=== PATIENT | male | born 1950 | race Caucasian/White ===

== ENCOUNTER 2016-09-14 20:21 | Observation (INO) | payer MEDICARE ==
[2016-09-14] MEDS ORDERED: ONDANSETRON 4 MG/2 ML VIAL IVP STA (21:20)
[2016-09-14 21:42] LABS: Basophils % (A) 1 %; CHCM 34.9; Eosinophils # (A) 0.4 k/uL (0-0.7); Eosinophils % (A) 7 %; HCT 39.3 % (39.0-53.0); Luc # (Auto) 0.13; Luc % (Auto) 2; Lymphocytes # (A) 0.9 k/uL (1.0-4.8); Lymphocytes % (A) 15 %; MCH 31.9 pg (25.0-35.0); MCHC 35.7 g/dL (31.0-37.0); MCV 89.4 fL (80.0-100.0); Mean Platelet Volume 7.3; Monocytes # (A) 0.4 k/uL (0-1.0); Monocytes % (A) 6 %; Neutrophils # (A) 4.2 k/uL (1.3-7.7); Neutrophils % (A) 70 %; RBC 4.39 m/uL (4.30-5.90); RDW 12.1 % (11.5-15.5); WBC 6.1 k/uL (3.8-10.6); WBC (Perox) 6.53
--- NOTE | 2016-09-14 21:50 | ED ---
Weakness HPI - General Chief complaint: Weakness Stated complaint: Syncope Time Seen by Provider: 09/14/16 21:17 Source: patient, EMS Mode of arrival: EMS Limitations: no limitations - History of Present Illness Initial comments: This patient is a 66-year-old man who comes to be evaluated for what appears to be near syncopal episode. The patient relates that he had gone to dinner with friends, feeling like his normal self. While he was at the restaurant at approximately 6:30, he noticed that he was feeling lightheaded. Another friend arrived and he found it very difficult to stand to greet this person. He subsequently felt more lightheaded and nauseated. He states that he felt like he was going to become unconscious and he also had an episode of vomiting. The patient is accompanied by a friend who is a physician stating that the patient' s pulse was very "thready" during this episode. The patient denies having any chest pain, dyspnea, palpitations, or diaphoresis. Patient states that since arriving here he is now feeling back to his usual self. MD Complaint: generalized weakness -: hour(s) Location: generalized Severity: severe Consistency: now resolved Improves with: none Worsens with: exertion Associated Symptoms: syncope (Near syncope) - Related Data Home Medications Medication Instructions Recorded Confirmed amLODIPine BESYLATE/BENAZEPRIL 1 cap PO DAILY 09/14/16 09/14/16 [amLODIPine BESYLATE/BENAZEPRIL 5-20 mg] Allergies Allergy/AdvReac Type Severity Reaction Status Date / Time No Known Allergies Allergy Verified 09/14/16 20:56 Review of Systems ROS Statement: Those systems with pertinent positive or pertinent negative responses have been documented in the HPI. ROS Other: All systems not noted in ROS Statement are negative. Constitutional: Reports: weakness. Denies: fever, chills Eyes: Denies: vision change Respiratory: Denies: cough, dyspnea, wheezes Cardiovascular: Reports: syncope (Near syncope). Denies: chest pain, palpitations, orthopnea, edema Gastrointestinal: Reports: nausea, vomiting. Denies: abdominal pain, diarrhea, melena, hematochezia Genitourinary: Denies: dysuria, hematuria Musculoskeletal: Denies: back pain Skin: Denies: rash Neurological: Denies: headache, weakness, numbness Past Medical History Past Medical History: Hypertension, Myocardial Infarction (AL) History of Any Multi-Drug Resistant Organisms: None Reported Past Surgical History: Heart Catheterization With Stent Past Psychological History: No Psychological Hx Reported Smoking Status: Never smoker Past Alcohol Use History: Daily Past Drug Use History: None Reported General Exam Limitations: no limitations General appearance: alert, in no apparent distress Head exam: Present: atraumatic, normocephalic Eye exam: Present: normal appearance. Absent: scleral icterus, conjunctival injection ENT exam: Present: normal oropharynx Neck exam: Present: normal inspection, full ROM Respiratory exam: Present: normal lung sounds bilaterally. Absent: respiratory distress, wheezes, rales, rhonchi, stridor Cardiovascular Exam: Present: regular rate, normal rhythm, normal heart sounds. Absent: systolic murmur, diastolic murmur, rubs, gallop GI/Abdominal exam: Present: soft. Absent: distended, tenderness, guarding, rebound, mass, pulsatile mass, hernia Extremities exam: Present: normal inspection, normal capillary refill. Absent: pedal edema, calf tenderness Back exam: Present: normal inspection. Absent: CVA tenderness (R), CVA tenderness (L) Neurological exam: Present: alert, oriented X3. Absent: motor sensory deficit Skin exam: Present: warm, dry, intact, normal color. Absent: rash Course Vital Signs 09/14/16 09/14/16 09/14/16 20:24 21:38 23:11 Temperature 96.7 F L 97.1 F L Pulse Rate 56 L 57 L 50 L Respiratory 18 18 18 Rate Blood Pressure 157/65 153/74 178/78 O2 Sat by Pulse 93 L 96 95 Oximetry EKG Findings - EKG Results: EKG: interpreted by CM, sinus rhythm, normal axis, normal QRS, normal ST/T, no acute changes EKG shows: bradycardia (Rate approximately 52 bpm) Medical Decision Making - Lab Data Result diagrams: 09/14/16 20:37 09/14/16 20:37 Lab Results 09/14/16 09/14/16 09/14/16 Range/Units 20:37 20:37 20:37 WBC 6.1 (3.8-10.6) k/uL RBC 4.39 (4.30-5.90) m/uL Hgb 14.0 (13.0-17.5) gm/dL Hct 39.3 (39.0-53.0) % MCV 89.4 (80.0-100.0) fL MCH 31.9 (25.0-35.0) pg MCHC 35.7 (31.0-37.0) g/dL RDW 12.1 (11.5-15.5) % Plt Count 179 (150-450) k/uL Neutrophils % 70 % Lymphocytes % 15 % Monocytes % 6 % Eosinophils % 7 % Basophils % 1 % Neutrophils # 4.2 (1.3-7.7) k/uL Lymphocytes # 0.9 L (1.0-4.8) k/uL Monocytes # 0.4 (0-1.0) k/uL Eosinophils # 0.4 (0-0.7) k/uL Basophils # 0.0 (0-0.2) k/uL PT (9.0-12.0) sec INR (<1.1) APTT (22.0-30.0) sec D-Dimer (<0.60) mg/L FEU Sodium 144 (137-145) mmol/L Potassium 4.0 (3.5-5.1) mmol/L Chloride 106 (98-107) mmol/L Carbon Dioxide 26 (22-30) mmol/L Anion Gap 12 mmol/L BUN 25 H (9-20) mg/dL Creatinine 1.10 (0.66-1.25) mg/dL Est GFR (MDRD) Af Amer >60 (>60 ml/min/1.73 sqM) Est GFR (MDRD) Non-Af >60 (>60 ml/min/1.73 sqM) Glucose 129 H (74-99) mg/dL Plasma Lactic Acid Alhaji (0.7-2.0) mmol/L Calcium 9.0 (8.4-10.2) mg/dL Magnesium 2.0 (1.6-2.3) mg/dL Total Bilirubin 1.0 (0.2-1.3) mg/dL AST 29 (17-59) U/L ALT 29 (21-72) U/L Alkaline Phosphatase 66 (38-126) U/L Total Creatine Kinase 69 (55-170) U/L CK-MB (CK-2) 0.8 (0.0-2.4) ng/mL CK-MB (CK-2) Rel Index 1.2 Troponin I <0.012 (0.000-0.034) ng/mL NT-Pro-B Natriuret Pep pg/mL Total Protein 6.8 (6.3-8.2) g/dL Albumin 4.1 (3.5-5.0) g/dL 09/14/16 09/14/16 09/14/16 Range/Units 20:37 20:37 21:42 WBC (3.8-10.6) k/uL RBC (4.30-5.90) m/uL Hgb (13.0-17.5) gm/dL Hct (39.0-53.0) % MCV (80.0-100.0) fL MCH (25.0-35.0) pg MCHC (31.0-37.0) g/dL RDW (11.5-15.5) % Plt Count (150-450) k/uL Neutrophils % % Lymphocytes % % Monocytes % % Eosinophils % % Basophils % % Neutrophils # (1.3-7.7) k/uL Lymphocytes # (1.0-4.8) k/uL Monocytes # (0-1.0) k/uL Eosinophils # (0-0.7) k/uL Basophils # (0-0.2) k/uL PT 10.7 (9.0-12.0) sec INR 1.1 (<1.1) APTT 23.1 (22.0-30.0) sec D-Dimer 0.33 (<0.60) mg/L FEU Sodium (137-145) mmol/L Potassium (3.5-5.1) mmol/L Chloride (98-107) mmol/L Carbon Dioxide (22-30) mmol/L Anion Gap mmol/L BUN (9-20) mg/dL Creatinine (0.66-1.25) mg/dL Est GFR (MDRD) Af Amer (>60 ml/min/1.73 sqM) Est GFR (MDRD) Non-Af (>60 ml/min/1.73 sqM) Glucose (74-99) mg/dL Plasma Lactic Acid Alhaji 1.1 (0.7-2.0) mmol/L Calcium (8.4-10.2) mg/dL Magnesium (1.6-2.3) mg/dL Total Bilirubin (0.2-1.3) mg/dL AST (17-59) U/L ALT (21-72) U/L Alkaline Phosphatase (38-126) U/L Total Creatine Kinase (55-170) U/L CK-MB (CK-2) (0.0-2.4) ng/mL CK-MB (CK-2) Rel Index Troponin I (0.000-0.034) ng/mL NT-Pro-B Natriuret Pep 60 pg/mL Total Protein (6.3-8.2) g/dL Albumin (3.5-5.0) g/dL Disposition Clinical Impression: Near syncope Disposition: ADMITTED IP TO THIS HOSP Condition: Good Referrals: Guillermo Aguilar MD [Primary Care Provider] - 1-2 days
--- NOTE | 2016-09-14 21:56 | XR ---
EXAM: XR Chest, 1 View CLINICAL HISTORY: Reason: weakness TECHNIQUE: Frontal view of the chest, 2 images. COMPARISON: No relevant prior studies available. FINDINGS: Lungs: Unremarkable. No consolidation. Pleural space: No pleural effusion. No pneumothorax. Heart: Unremarkable. No cardiomegaly. Mediastinum: Unremarkable. Bones/joints: No acute findings. IMPRESSION: No acute cardiopulmonary process.
[2016-09-14 21:57] LABS: ALT 29 U/L (21-72); AST 29 U/L (17-59); Alkaline Phosphatase 66 U/L (38-126); Anion Gap 12 mmol/L; Blood Urea Nitrogen 25 mg/dL (9-20); Carbon Dioxide 26 mmol/L (22-30); Chloride 106 mmol/L (98-107); Glucose 129 mg/dL (74-99); Non-African American GFR(MDRD) >60 (>60 ml/min/1.73 sqM); Sodium 144 mmol/L (137-145); Total Protein 6.8 g/dL (6.3-8.2)
[2016-09-14 22:07] LABS: Creatine Kinase 69 U/L (55-170)
[2016-09-14 22:09] LABS: INR 1.1 (<1.1); Partial Thromboplastin Time 23.1 sec (22.0-30.0); Prothrombin Time 10.7 sec (9.0-12.0)
[2016-09-14 22:20] LABS: Creatine Kinase MB 0.8 ng/mL (0.0-2.4); Troponin I <0.012 ng/mL (0.000-0.034)
[2016-09-14] MEDS ORDERED: NITROGLYCERIN SL TABS 0.4 MG TAB SUBLINGUAL PRN (23:48)
[2016-09-14] MEDS: SODIUM CHLORIDE 0.9% 1,000 ML IV SCH (23:52)
[2016-09-15 00:39] VITALS: RESP 16
[2016-09-15 01:44] LABS: Creatine Kinase 64 U/L (55-170)
[2016-09-15 01:54] LABS: Creatine Kinase MB 0.8 ng/mL (0.0-2.4); Troponin I <0.012 ng/mL (0.000-0.034)
[2016-09-15 02:53] VITALS: BMI 21.6
[2016-09-15 06:15] LABS: Cholesterol 129 mg/dL (<200); HDL Cholesterol 50 mg/dL (40-60); Triglycerides 46 mg/dL (<150)
[2016-09-15 06:34] LABS: Creatine Kinase 53 U/L (55-170)
[2016-09-15 06:47] LABS: Creatine Kinase MB 0.8 ng/mL (0.0-2.4); Troponin I <0.012 ng/mL (0.000-0.034)
[2016-09-15] MEDS ORDERED: amLODIPine 5 MG TAB PO SCH (09:00)
[2016-09-15] MEDS ORDERED: LISINOPRIL 20 MG TAB PO SCH (09:00)
[2016-09-15] MEDS: ASPIRIN 325 MG TAB PO SCH ×2 (10:44→10:45)
[2016-09-15] MEDS: SODIUM CHLORIDE 0.9% 1,000 ML IV SCH (10:45)
--- NOTE | 2016-09-15 10:52 | EST ---
DATE OF SERVICE: 09/15/2016 AGE: 66Y SEX: M HT: 5'11" WT: 155 lbs. Protocol Lonnie: X Other: Cardiolite Stage: 4 Dur. of Exercise: 10:00 *Heart Rate Blood Pressure *Rest: 57 Rest: 156/84 * *Max. Achieved: 132 Maximum BP: 201/77 85% PMHR: 130 100% PMHR: 153 *METS: 11.5 INDICATIONS: Syncope MEDICATIONS: Amlodipine. Mr. Stevens is a 66-year-old gentleman with history of hypertension and also previous ischemic heart disease being evaluated for cardiac status. STRESS DATA: Baseline EKG showed a sinus rhythm with normal NM interval and QRS duration. Blood pressure at rest is 156/84 with a pulse rate of 57. Patient walked on the Lonnie protocol for 10 minutes achieving a maximum heart rate of 132 with a blood pressure of 201/77. EKGs did not reveal any changes to suggest ischemia. Patient did not experience any chest pain. FINAL IMPRESSION: 1. Negative stress test. 2. Patient did not experience any chest pain. 3. No arrhythmias were detected. 4. Baseline EKG showed poor R-wave in the anterior leads. 5. Report on the nuclear images to be given by the radiologist.
--- NOTE | 2016-09-15 11:42 | NM ---
EXAMINATION TYPE: NM stress cardiolite complete DATE OF EXAM: 09/15/2016 10:31 AM COMPARISON: NONE HISTORY: syncope TECHNIQUE: After the intravenous administration of 10.49 mCi Tc 99m Sestamibi - Rest images obtained 45 minutes post injection. The patient exercised using a SWEETIE protocol and 1 minute prior to peak exercise was injected with 27.4 mCi Tc 99m Sestamibi - Stress images obtained 20 minutes post inject ion. FINDINGS: Targeted heart rate was achieved during performance of the study. Review of stress and rest SPECT marino ges demonstrates no distinct perfusion abnormality. Gated analysis shows normal wall motion with an estimated left ventricular ejection fraction of 65 %. IMPRESSION: No scintigraphic evidence for reversible ischemia
[2016-09-15 11:55] VITALS: BP 139/73; PULSE 61; TEMP 98.5
--- NOTE | 2016-09-15 21:36 | HP ---
DATE OF ADMISSION: 09/14/2016 CHIEF COMPLAINT: Near fainting episode. HISTORY OF PRESENT ILLNESS: This is a 66-year-old gentleman who was at dinner with his friends. The patient suddenly started feeling poorly. He had no associated chest pain. He felt lightheaded. As he tried to get up, he had more lightheaded and felt like he almost passed out, though not totally. The patient had no chest pain, palpitations, headache. He did subsequently vomit. The patient is brought into the emergency room by his friends. One of his friends was a physician and he reported that the patient's pulse was thready. The patient had no other symptoms. He does have a history of coronary artery disease with a previous myocardial infarction back in December 2008. He has had no subsequent symptoms. The patient does have a history of hypertension and is on medical therapy and he did take his medications the morning of his procedure. The patient has a history of bronchial asthma with p.r.n. use of inhaler which he has not used for a while now. The patient only had a half a glass of wine in the evening. The patient previously has had no similar episodes. However, on Monday he started having diarrhea, got quite confused. The patient did play golf and at times felt that he felt lightheaded when he bent over and stood up. The patient was seen in the ER. Vitals are stable. His cardiac enzymes were normal. There was no evidence of any anemia. He denies any melanotic stools. The patient has had no evidence of any infection. He is admitted to the hospital for observation. He feels fairly well this morning with no symptoms. He has been up and about without any symptoms of dizziness. No nausea, vomiting, slight loose stool, but no diarrhea. No abdominal pains. Past medical history is significant for hypertension for the past about 11 years, history of bronchial asthma, mild intermittent episodes. Myocardial infarction non-STEMI back in January 26, 2009. He had drug-eluting stent placed at that time. He has had no further symptoms. He is very active with no symptoms. No history of any lung disease, liver disease, kidney disease, ulcers, TB, hepatitis. No history of rheumatic fever, myocardial infarction, CVA. No history of any GI bleeding. PAST SURGICAL HISTORY: Significant for previous cystoscopy for hematuria. PERSONAL HISTORY: Nonsmoker. Alcohol about 3 drinks a week. VACCINATIONS: Does get an annual flu shot. ALLERGIES: None known. MEDICATIONS: 1. Nitrostat sublingual p.r.n. which she has not taken for a while. 2. Takes aspirin daily. SOCIAL HISTORY: Patient is and lives with spouse. He normally lives in [place] now. He used to work up here, and still comes up for work here. 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 Exercises regularly. FAMILY MEDICAL HISTORY: Father at the age of 79, history of rheumatic fever, and COPD. Mother at the age of 89, she had CVA, hypertension, history of CA of the uterus, brother 73 history of hypertension. Brother 62, in good health. A sister 71 with history of peripheral arterial disease. A sister 66, in good health. The patient has a son, 41 and a daughter, 40 adequate health. REVIEW OF SYSTEMS: NEURO: Denies any headaches, present symptom of dizziness and near syncope. No other focal neurological symptoms. No seizures. PSYCH: No anxiety, depression. CARDIAC: No chest pain, angina, palpitation. RESPIRATORY: No shortness breath, cough, hemoptysis. GI: No nausea, vomiting, abdominal pain, diarrhea. : No symptoms of dysuria, hematuria, urgency, frequency. EXTREMITIES: No pain or edema. CONSTITUTIONAL: No fever or chills. PHYSICAL EXAMINATION: Pleasant gentleman in no distress. VITALS: Revealed temperature is 96.7, pulse 56, respirations 18, blood pressure 157/65, pulse ox 93% on room air. HEENT: Normocephalic. NECK: Supple. No JVD. Pupils are reactive and symmetrical bilateral. Neck reveals no JVD, carotid bruits, or thyromegaly. Chest is clear to auscultation and percussion. CARDIAC: Normal S1, S2 with no gallops, murmurs, rubs. ABDOMEN: Soft, no palpable masses. Bowel sounds normal. No organomegaly. No bruits. Extremities reveal no edema. Good pulses, both upper and lower extremities. NEUROLOGIC: Awake, alert, oriented x3 with well-coordinated movements. LABORATORY ASSESSMENT: CBC which was normal. PT, INR normal. Chemistry reveals BUN elevated to 25 and creatinine 1.10 and random glucose 129. Renal function normal. Troponin less than 0.012, normal. The BNP has been ( ). Repeat cardiac enzymes also stable, normal with negative troponins. Patient's lipid profile ( ). Cholesterol 129, LDL 70, HDL 50. EKG reveals sinus bradycardia with no acute changes. ASSESSMENT: 1. Near syncope. 2. Probably vasovagal episode. 3. Sinus bradycardia. 4. Known history of coronary artery disease ( ). 5. Hypertension. 6. Recent diarrhea. 7. Mild dehydration. PLAN: The patient is given IV fluids and is feeling well. The patient will undergo cardiac stress testing to rule out any cardiac ischemia. The patient did have a stress test which revealed no evidence of any reversible ischemia. He has had good ejection fraction of 65% ( ). Chest x-ray was unremarkable. Final assessment: Will be: 1. Vasovagal syncope. 2. Hypertension. 3. Known history of coronary artery disease, stable. PLAN: The patient at present is stable. The patient's condition is reviewed with the patient. The patient will be discharged home to continue the same medications at home. Advised to keep himself well-hydrated especially in warm weather especially when he is out on the golf course. The patient to follow up with his physician in [place].
--- NOTE | 2016-09-16 07:49 | DS ---
DATE OF ADMISSION: 09/14/2016 DATE OF DISCHARGE: 09/15/2016 PRINCIPLE DIAGNOSES: 1. Near syncope. 2. Sinus bradycardia. 3. Hypertension. 4. Mild dehydration. 5. Known coronary artery disease. HISTORY OF PRESENT ILLNESS: This gentleman was admitted to the hospital for observation due to near syncopal episode at dinner. The patient has a known history of coronary artery disease and in view of this, elected to be admitted for further observation. The patient following admission had no major problems and continued to remain in sinus bradycardia on telemetry. His cardiac enzymes came back negative for any ischemic event. He did undergo a stress Cardiolite, which revealed no distinct perfusion abnormality and an ejection fraction of 65%. There was no evidence of any reversible ischemia. His chest x-ray was unremarkable. His cholesterol was 129, HDL 50, and LDL 70. Patient's heart rate remained in the 50s without much change. He did have mild dehydration as evidenced with a slight elevated BUN and recent diarrhea. The patient was given adequate IV fluids and felt well without any further symptoms. The patient was in view of this discharged from the hospital. The patient is to follow up with his physician in [place].
== END 2016-09-15 13:18 | disposition hospice, home (50) ==
LOC: EC 20:21 → 3OBS 23:48
PROVIDERS: ADMIT Internal Medicine; ATTEND Internal Medicine
DX: R55 Syncope and collapse (principal); R00.1 Bradycardia, unspecified; I10 Essential (primary) hypertension; E86.0 Dehydration; I25.10 Atherosclerotic heart disease of native coronary artery without angina pectoris; R53.1 Weakness; R19.7 Diarrhea, unspecified; Z79.899 Other long term (current) drug therapy; I25.2 Old myocardial infarction; Z95.5 Presence of coronary angioplasty implant and graft; Z79.82 Long term (current) use of aspirin; Z82.49 Family history of ischemic heart disease and other diseases of the circulatory system; Z82.3 Family history of stroke; Z82.5 Family history of asthma and other chronic lower respiratory diseases
CPT/HCPCS: 96360; 96361; 99285; 36415; 93005; 93017; 85379; 83880; 80061; 80053; 82550 ×2; 82553 ×2; 83605; 83735; 84484 ×2; 85025; 85610; 85730; 71010; 78452; G0378 ×2; A9500

== ENCOUNTER 2021-05-23 11:45 | Emergency (ER) | payer MEDICARE ==
[2021-05-23 12:06] LABS: Glucose,Whole Blood 110 mg/dL (75-99)
[2021-05-23 12:11] VITALS: RESP 18
[2021-05-23 12:27] LABS: Basophils % (A) 0 %; Eosinophils # (A) 0.1 k/uL (0-0.7); Eosinophils % (A) 2 %; HCT 43.2 % (39.0-53.0); HGB 15.1 gm/dL (13.0-17.5); Lymphocytes # (A) 0.9 k/uL (1.0-4.8); Lymphocytes % (A) 15 %; MCH 32.7 pg (25.0-35.0); MCHC 34.9 g/dL (31.0-37.0); MCV 93.6 fL (80.0-100.0); Monocytes # (A) 0.4 k/uL (0-1.0); Monocytes % (A) 6 %; Neutrophils # (A) 4.2 k/uL (1.3-7.7); Neutrophils % (A) 75 %; Platelet Count 189 k/uL (150-450); RBC 4.61 m/uL (4.30-5.90); RDW 12.3 % (11.5-15.5); WBC 5.7 k/uL (3.8-10.6)
[2021-05-23 12:40] LABS: Albumin 4.2 g/dL (3.5-5.0); Calcium 9.3 mg/dL (8.4-10.2); Potassium 4.1 mmol/L (3.5-5.1); Total Bilirubin 1.2 mg/dL (0.2-1.3); Total Protein 7.5 g/dL (6.3-8.2)
[2021-05-23 12:42] LABS: Partial Thromboplastin Time 25.3 sec (22.0-30.0); Prothrombin Time 10.5 sec (9.0-12.0)
--- NOTE | 2021-05-23 12:45 | CT ---
EXAMINATION TYPE: CT brain wo con for TPA DATE OF EXAM: 05/23/2021 COMPARISON: None HISTORY: right sided numbness to right arm, right leg, right cheek CT DLP: 1175 mGycm Automated exposure control for dose reduction was used. Helical acquisition through the brain. FINDINGS: There is no hemorrhage or hydrocephalus. Cortical atrophy is likely age-related. Patchy white matter low-attenuation is present. Calvarium is intact. Inflammatory change present within the ethmoid air c ells. Orbits show symmetric appearance. Mastoid air cells are well aerated. IMPRESSION: NO ACUTE BRAIN ABNORMALITY. AGE-RELATED CHANGES OF ATROPHY AND PROBABLE CHRONIC SMALL VESSEL ISCHEMIA . SINUS DISEASE. CONSIDER BRAIN MRI INDICATED FOR INCREASED SENSITIVITY.
--- NOTE | 2021-05-23 13:19 | CT ---
EXAMINATION TYPE: CT angio head neck DATE OF EXAM: 05/23/2021 HISTORY: right sided numbness to right arm, right leg, right cheek COMPARISON: CT DLP: 494.2 mGycm. Automated Exposure Control for Dose Reduction was Utilized. TECHNIQUE: CTA scan of the neck and brain is performed with IV Contrast, patient injected with 65 mL of Isovue 370, axial images are obtained, coronal and sagittal reformatted images are reviewed. 3D r econstructed images are created on an independent workstation and reviewed. FINDINGS: Carotid/Vascular Structures: Patent transverse aorta, innominate, left and right common carotid, left and right subclavian arteries. Internal and external carotid arteries are widely patent. Vertebral a rteries are patent and codominant. Intracranial internal carotid artery shows patency bilaterally, no evident embolus, aneurysm, stenosi s, or dissection , and suspect a persistent origin of the left posterior cerebral artery Other: Degenerative disc changes are noted in the visualized spine. IMPRESSION: No significant abnormality is seen. NASCET criteria was used in interpretation of this exam?
--- NOTE | 2021-05-23 13:43 | XR ---
EXAMINATION TYPE: XR chest 2V DATE OF EXAM: 05/23/2021 COMPARISON: Chest x-ray 09/14/2016 HISTORY: Altered mental status TECHNIQUE: Frontal and lateral views of the chest are obtained. FINDINGS: There is no focal air space opacity, pleural effusion, or pneumothorax seen. The cardiac silhouette size is within normal limits. There are overlying leads present. 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 The osseous structures are intact. IMPRESSION: No acute cardiopulmonary process.
[2021-05-23] MEDS ORDERED: ASPIRIN 325 MG TAB PO STA (14:36)
--- NOTE | 2021-05-23 14:37 | ED ---
Neuro HPI - General Chief Complaint: Neuro Symptoms/Deficit Stated Complaint: Poss Stroke Time Seen by Provider: 05/23/21 11:50 Source: patient Mode of arrival: ambulatory Limitations: no limitations - History of Present Illness Is the patient presenting with stroke symptoms?: Yes Initial Comments: 71-year-old male presents emergency Department with right-sided numbness. He states that he was at work when he suddenly had numbness to his face, right arm and right leg. He attempted to ambulate around his office without improvement in his symptoms. He denies having any headaches or visual changes. Attempted to use a curse her on his mouth when he felt like he didn't have control over his right hand. He is left-hand dominant. No unwitnessed episode. Patient tried to look for and aspirin however was unable to find one. Patient got concerned enough that he brought himself into the hospital. He feels as if his symptoms are completely resolved at this time. Denies previous history of stroke. Denies any chest pain or shortness of breath. No recent head injuries. Patient is on the blood thinners. No other alleviating, Perceptin or modifying factors - Related Data Home Medications: Home Medications Medication Instructions Recorded Confirmed amLODIPine BESYLATE/BENAZEPRIL 1 cap PO DAILY 09/14/16 05/23/21 [amLODIPine BESYLATE/BENAZEPRIL 5-20 MG] Albuterol Sulfate [Proventil Hfa] 2 puff INHALATION RT-Q4H PRN 05/23/21 05/23/21 Budesonide/Formoterol Fumarate 2 puff INHALATION RT-BID 05/23/21 05/23/21 [Symbicort 160-4.5 Mcg Inhaler] Allergies/Adverse Reactions: Allergies Allergy/AdvReac Type Severity Reaction Status Date / Time No Known Allergies Allergy Verified 05/23/21 11:48 Review of Systems ROS Statement: Those systems with pertinent positive or pertinent negative responses have been documented in the HPI. ROS Other: All systems not noted in ROS Statement are negative. General Exam Limitations: no limitations General appearance: alert, in no apparent distress Head exam: Present: atraumatic, normocephalic, normal inspection Eye exam: Present: normal appearance, PERRL, EOMI. Absent: scleral icterus, conjunctival injection, periorbital swelling ENT exam: Present: normal exam, mucous membranes moist Neck exam: Present: normal inspection. Absent: tenderness, meningismus, lymphadenopathy Respiratory exam: Present: normal lung sounds bilaterally. Absent: respiratory distress, wheezes, rales, rhonchi, stridor Cardiovascular Exam: Present: regular rate, normal rhythm, normal heart sounds. Absent: systolic murmur, diastolic murmur, rubs, gallop, clicks GI/Abdominal exam: Present: soft, normal bowel sounds. Absent: distended, tenderness, guarding, rebound, rigid Extremities exam: Present: normal inspection, full ROM, normal capillary refill. Absent: tenderness, pedal edema, joint swelling, calf tenderness Back exam: Present: normal inspection Neurological exam: Present: alert, oriented X3, CN II-XII intact Psychiatric exam: Present: normal affect, normal mood Skin exam: Present: warm, dry, intact, normal color. Absent: rash Stroke MDM - Lab Data Result diagrams: 05/23/21 12:13 05/23/21 12:13 Lab Results 05/23/21 05/23/21 05/23/21 Range/Units 12:04 12:13 12:13 WBC 5.7 (3.8-10.6) k/uL RBC 4.61 (4.30-5.90) m/uL Hgb 15.1 (13.0-17.5) gm/dL Hct 43.2 (39.0-53.0) % MCV 93.6 (80.0-100.0) fL MCH 32.7 (25.0-35.0) pg MCHC 34.9 (31.0-37.0) g/dL RDW 12.3 (11.5-15.5) % Plt Count 189 (150-450) k/uL MPV 7.0 Neutrophils % 75 % Lymphocytes % 15 % Monocytes % 6 % Eosinophils % 2 % Basophils % 0 % Neutrophils # 4.2 (1.3-7.7) k/uL Lymphocytes # 0.9 L (1.0-4.8) k/uL Monocytes # 0.4 (0-1.0) k/uL Eosinophils # 0.1 (0-0.7) k/uL Basophils # 0.0 (0-0.2) k/uL PT 10.5 (9.0-12.0) sec INR 1.0 (<1.2) APTT 25.3 (22.0-30.0) sec Sodium (137-145) mmol/L Potassium (3.5-5.1) mmol/L Chloride (98-107) mmol/L Carbon Dioxide (22-30) mmol/L Anion Gap mmol/L BUN (9-20) mg/dL Creatinine (0.66-1.25) mg/dL Est GFR (CKD-EPI)AfAm (>60 ml/min/1.73 sqM) Est GFR (CKD-EPI)NonAf (>60 ml/min/1.73 sqM) Glucose (74-99) mg/dL POC Glucose (mg/dL) 110 H (75-99) mg/dL POC Glu Job Developer ID [place] Calcium (8.4-10.2) mg/dL Total Bilirubin (0.2-1.3) mg/dL AST (17-59) U/L ALT (4-49) U/L Alkaline Phosphatase (38-126) U/L Troponin I (0.000-0.034) ng/mL Total Protein (6.3-8.2) g/dL Albumin (3.5-5.0) g/dL 05/23/21 05/23/21 Range/Units 12:13 12:13 WBC (3.8-10.6) k/uL RBC (4.30-5.90) m/uL Hgb (13.0-17.5) gm/dL Hct (39.0-53.0) % MCV (80.0-100.0) fL MCH (25.0-35.0) pg MCHC (31.0-37.0) g/dL RDW (11.5-15.5) % Plt Count (150-450) k/uL MPV Neutrophils % % Lymphocytes % % Monocytes % % Eosinophils % % Basophils % % Neutrophils # (1.3-7.7) k/uL Lymphocytes # (1.0-4.8) k/uL Monocytes # (0-1.0) k/uL Eosinophils # (0-0.7) k/uL Basophils # (0-0.2) k/uL PT (9.0-12.0) sec INR (<1.2) APTT (22.0-30.0) sec Sodium 140 (137-145) mmol/L Potassium 4.1 (3.5-5.1) mmol/L Chloride 106 (98-107) mmol/L Carbon Dioxide 31 H (22-30) mmol/L Anion Gap 3 mmol/L BUN 28 H (9-20) mg/dL Creatinine 1.05 (0.66-1.25) mg/dL Est GFR (CKD-EPI)AfAm 82 (>60 ml/min/1.73 sqM) Est GFR (CKD-EPI)NonAf 71 (>60 ml/min/1.73 sqM) Glucose 107 H (74-99) mg/dL POC Glucose (mg/dL) (75-99) mg/dL POC Glu Job Developer ID Calcium 9.3 (8.4-10.2) mg/dL Total Bilirubin 1.2 (0.2-1.3) mg/dL AST 30 (17-59) U/L ALT 25 (4-49) U/L Alkaline Phosphatase 77 (38-126) U/L Troponin I 0.015 (0.000-0.034) ng/mL Total Protein 7.5 (6.3-8.2) g/dL Albumin 4.2 (3.5-5.0) g/dL - Medical Decision Making On arrival patient is placed into room 2. A thorough history and physical exam is performed. Patient has an NIH of 0 at this time with symptoms completely resolved. Laboratory studies were conducted and the patient is over for CT as well as CT angiography. Laboratory studies are reviewed and are within normal limits. CT of the brain does not demonstrate any signs of aneurysm, vascular stenosis or hemorrhage. Patient is updated in regards to his symptoms. Did recommend hospitalization order to have neurology consult on the patient. Patient refused admission. Patient is able to voice the risks of leaving including disability and . Patient is normally from [place] and states that he will be flying home within the next several days. Like follow-up with a neurologist in 4 to. He is instructed that he needs to return to the hospital for any new or worsening symptoms or does agree to hospital admission. Patient discharged home in stable edition 05/23/21 14:35 EKG demonstrates sinus bradycardia with a ventricular rate of 50. MN interval 182. QRS 94. QTC of 379. No acute ST segment elevations or depressions Past Medical History Past Medical History: Hypertension, Myocardial Infarction ([place]) Last Myocardial Infarction Date:: 2007 History of Any Multi-Drug Resistant Organisms: None Reported Past Surgical History: Heart Catheterization With Stent Past Anesthesia/Blood Transfusion Reactions: No Reported Reaction Date of Last Stent Placement:: 2007 Past Psychological History: No Psychological Hx Reported Smoking Status: Never smoker Past Alcohol Use History: Occasional Past Drug Use History: None Reported Course Vital Signs 05/23/21 05/23/21 05/23/21 11:48 12:05 12:49 Temperature 97.4 F L Pulse Rate 58 L 61 53 L Respiratory 20 18 18 Rate Blood Pressure 190/85 179/96 152/103 O2 Sat by Pulse 97 97 98 Oximetry 05/23/21 05/23/21 14:00 14:43 Temperature 98.7 F Pulse Rate 56 L 55 L Respiratory 18 18 Rate Blood Pressure 144/76 142/86 O2 Sat by Pulse 97 97 Oximetry Disposition Clinical Impression: Transient cerebral ischemia, Right sided numbness Disposition: HOME SELF-CARE Condition: Stable Instructions (If sedation given, give patient instructions): Transient Ischemic Attack (ED) Additional Instructions: I recommended hospital admission. You need to follow up with the neurologist for further evaluation. You will need an MRI. Take aspirin 325 mg daily and follow up with your primary care doctor within the next 2-4 days. Return to the emergency room for any new or worsening symptoms. Is patient prescribed a controlled substance at d/c from ED?: No Referrals: Sharon Garcia MD [Primary Care Provider] - 1-2 days Time of Disposition: 14:37
[2021-05-23 14:45] VITALS: BP 142/86; PULSE 55; TEMP 98.7
== END 2021-05-23 14:45 | disposition home or self-care (01) ==
LOC: EC 11:45
DX: R29.818 Other symptoms and signs involving the nervous system (principal); G45.9 Transient cerebral ischemic attack, unspecified; I25.2 Old myocardial infarction; I10 Essential (primary) hypertension; Z79.899 Other long term (current) drug therapy
CPT/HCPCS: 36415; 93005; 80053; 84484; 85025; 85610; 85730; 71046; 70496; 70450; 70498; 99285; Q9967